=== PATIENT | male | born 1980 | race African-American/Black ===

== ENCOUNTER 2022-11-03 12:21 | Inpatient (IN) | payer OTHER ==
[2022-11-03 12:44] VITALS: BMI 26.6
[2022-11-03] MEDS ORDERED: ACETAMINOPHEN 325 MG TABLET (FP) PO PRN (13:40)
[2022-11-03] MEDS ORDERED: IBUPROFEN 400 MG TABLET (FP) PO PRN (13:40)
[2022-11-03] MEDS ORDERED: BENZONATATE 200 MG CAPSULE PO PRN (13:40)
[2022-11-03] MEDS ORDERED: hydrOXYzine PAMOATE 25 MG CAPSULE (FP) PO PRN (13:40)
[2022-11-03] MEDS ORDERED: MAGNESIUM HYDROX 2400MG/30ML ORAL SUSPENSION 30 ML CUP PO PRN (13:40)
[2022-11-03] MEDS ORDERED: LORazepam 1 MG TABLET PO PRN (13:40)
[2022-11-03] MEDS ORDERED: MAG HYDROX/AL HYDROX/SIMETH 30 ML UNIT-DOSE CUP PO PRN (13:40)
[2022-11-03] MEDS ORDERED: METHOCARBAMOL 500 MG TABLET PO PRN (13:40)
[2022-11-03] MEDS ORDERED: guaiFENesin 600 MG TABLET.ER (FP) PO PRN (13:40)
[2022-11-03] MEDS ORDERED: IBUPROFEN 600 MG TABLET (FP) PO PRN (13:40)
[2022-11-03] MEDS ORDERED: NALOXONE HCL (KLOXXADO) 8 MG SPRAY NS PRN (13:40)
[2022-11-03] MEDS ORDERED: ONDANSETRON *ODT* 4 MG TABLET SL PRN (13:40)
[2022-11-03] MEDS ORDERED: LOPERAMIDE HCL 2 MG CAPSULE PO PRN (13:40)
[2022-11-03] MEDS ORDERED: BISMUTH SUBSALICYLATE 262 MG/15 ML BTL PO PRN (13:40)
[2022-11-03] MEDS ORDERED: DICYCLOMINE HCL 10 MG CAPSULE PO PRN (13:40)
[2022-11-03] MEDS ORDERED: NICOTINE 10 MG CARTRIDGE (INHALER) IH PRN (13:40)
[2022-11-03] MEDS ORDERED: POLYETHYLENE GLYCOL (HEALTHYLAX) 3350 17 GM PACKET PO PRN (13:40)
[2022-11-03] MEDS ORDERED: BENZOCAINE/MENTHOL (CHLORASEPTIC ) LOZENGE MM PRN (13:40)
[2022-11-03] MEDS ORDERED: NALOXONE HCL 0.4 MG/ML VIAL IM PRN (13:40)
[2022-11-03 17:18] LABS: HEMATOCRIT 39.8 % (35.4-49); HEMOGLOBIN 14.1 GM/dL (11.7-16.9); MCH 32.7 pg (25.7-33.7); MCHC 35.5 g/dl (32.0-35.9); MEAN CELL VOLUME 92.2 fl (80-96); MEAN PLT VOLUME 9.1 fl (7.5-11.1); PLATELET COUNT 170 10^3/uL (134-434); RBC 4.32 M/mm3 (4.00-5.60); RDW 12.6 % (11.9-15.9); WHITE BLOOD COUNT 4.4 K/mm3 (4.0-10.0)
[2022-11-03 17:43] LABS: ALBUMIN 3.8 g/dl (3.4-5.0); BLOOD UREA NITROGEN 22.7 mg/dL (7-18); CALCIUM 9.2 mg/dL (8.5-10.1)
[2022-11-03 17:46] LABS: CREATININE 1.7 mg/dL (0.55-1.3)
[2022-11-03 17:48] LABS: BILIRUBIN,TOTAL 0.6 mg/dL (0.2-1); TOT PROT 6.4 g/dl (6.4-8.2)
[2022-11-03] MEDS: LORazepam 2 MG TABLET PO SCH ×2 (17:50→22:56)
[2022-11-03] MEDS: MELATONIN 5 MG TABLETS PO SCH (22:56)
[2022-11-03] MEDS: THIAMINE HCL 100 MG TABLET (FP) PO SCH (22:57)
[2022-11-04] MEDS: LORazepam 2 MG TABLET PO SCH ×4 (05:47→23:08)
[2022-11-04] MEDS: DARUNAVIR ETHANOLATE 800 MG TAB PO SCH (07:50)
[2022-11-04] MEDS: RITONAVIR 100 MG TABLET PO SCH (07:50)
[2022-11-04] MEDS ORDERED: DARUNAVIR ETHANOLATE PO SCH (10:00)
[2022-11-04] MEDS ORDERED: DARUNAVIR 800 MG/COBICISTAT 150MG TABLET PO SCH (10:00)
[2022-11-04] MEDS ORDERED: ABACAVIR LAMIVUDINE PO SCH (10:00)
[2022-11-04] MEDS ORDERED: ABACAVIR SULFATE 300 MG TABLET PO SCH (10:00)
[2022-11-04] MEDS ORDERED: PRENATAL VITAMINS W/ FOLIC ACID TABLET (FP) PO SCH (10:00)
[2022-11-04] MEDS ORDERED: PATIENT'S OWN MEDICATION (NON-FORMULARY) (Abacavir Sulfate/Lamivudine [Abacavir-Lamivudine PO SCH (10:00)
[2022-11-04] MEDS: ABACAVIR SULFATE 300 MG TABLET PO SCH (10:41)
[2022-11-04] MEDS: THIAMINE HCL 100 MG TABLET (FP) PO SCH (23:08)
[2022-11-04] MEDS: MELATONIN 5 MG TABLETS PO SCH (23:08)
[2022-11-05] MEDS: LORazepam 1 MG TABLET PO SCH ×4 (05:56→22:43)
[2022-11-05] MEDS: RITONAVIR 100 MG TABLET PO SCH (07:32)
[2022-11-05] MEDS: DARUNAVIR ETHANOLATE 800 MG TAB PO SCH (07:32)
[2022-11-05] MEDS: ABACAVIR SULFATE 300 MG TABLET PO SCH (10:34)
[2022-11-05] MEDS: MELATONIN 5 MG TABLETS PO SCH (22:43)
[2022-11-05] MEDS: THIAMINE HCL 100 MG TABLET (FP) PO SCH (22:43)
[2022-11-06] MEDS ORDERED: LORazepam 0.5 MG TABLET PO PRN
[2022-11-06] MEDS: LORazepam 0.5 MG TABLET PO SCH ×4 (05:58→22:40)
[2022-11-06] MEDS: RITONAVIR 100 MG TABLET PO SCH (08:04)
[2022-11-06] MEDS: DARUNAVIR ETHANOLATE 800 MG TAB PO SCH (08:04)
[2022-11-06] MEDS: ABACAVIR SULFATE 300 MG TABLET PO SCH (09:13)
[2022-11-06] MEDS: MELATONIN 5 MG TABLETS PO SCH (22:39)
[2022-11-06] MEDS: THIAMINE HCL 100 MG TABLET (FP) PO SCH (22:40)
[2022-11-07] MEDS ORDERED: LORazepam 0.5 MG TABLET PO ONE (05:00)
[2022-11-07] MEDS: RITONAVIR 100 MG TABLET PO SCH (07:30)
[2022-11-07] MEDS: DARUNAVIR ETHANOLATE 800 MG TAB PO SCH (07:31)
[2022-11-07] MEDS: ABACAVIR SULFATE 300 MG TABLET PO SCH (09:08)
[2022-11-07 09:53] VITALS: BP 117/74; PULSE 62; RESP 20; TEMP 97.8
== END 2022-11-07 10:08 | disposition home or self-care (01) | DRG 774 ==
LOC: YASAS 12:21 → Y3N 14:20
PROVIDERS: ADMIT Allergy & Immunology; ATTEND Surgery
PROC: HZ2ZZZZ Detoxification Services for Substance Abuse Treatment (ICD-10-PCS; principal; 2022-11-03)
DX: F10.230 Alcohol dependence with withdrawal, uncomplicated (principal); F14.20 Cocaine dependence, uncomplicated; F17.210 Nicotine dependence, cigarettes, uncomplicated; F31.81 Bipolar II disorder; B20 Human immunodeficiency virus [HIV] disease; Z79.899 Other long term (current) drug therapy; N18.30 Chronic kidney disease, stage 3 unspecified; Z86.19 Personal history of other infectious and parasitic diseases
CPT/HCPCS: 36415; 80053; 85027; 86593; 86780; C9803-CS; U0003; U0005